=== PATIENT | male | born 1955 | race Caucasian/White ===

== ENCOUNTER → 2020-02-05 19:20 | Outpatient (ROUT) | payer OTHER, SELFPAY ==
[2020-02-05 19:56] LABS: Aspartate Aminotransferase 24 IU/L (17-59); Cholesterol 227 mg/dL (140-199); HDL Cholesterol 54 mg/dL (40-60); LDL Cholesterol Calculated 124 mg/dL (<100); Triglycerides 245 mg/dL (35-150)
[2020-02-05 20:26] LABS: Prostate Specific Antigen 0.642 ng/mL (0.10-4.00)
== END ==
PROVIDERS: Visit Provider Internal Medicine
DX: E78.2 Mixed hyperlipidemia (principal)
CPT/HCPCS: 80061; 84153; 84450

== ENCOUNTER → 2022-07-30 10:31 | Outpatient (CLI) | payer MEDICARE, OTHER, SELFPAY ==
--- NOTE | 2022-07-30 10:33 | DI.NM.S_ITS ---
PROCEDURE: NM BONE SCAN WHOLE BODY RADIOPHARMACEUTICAL: 21.1 mCi Tc-99m MDP IV. INDICATIONS: bone pain arms and legs, psoriatic arthritis TECHNIQUE: Delayed whole-body scintigrams were obtained approximately 3-4 hours after intravenous injection of radiotracer. Anterior and posterior views were acquired from vertex to feet. Additional localized views of the thoracic cage and lower extremities were obtained. COMPARISON: [facility], CT, CT ABDOMEN PELVIS WITHOUT CONTRAST, 06/18/2020, 15:40. FINDINGS: No lesions are identified in skull, sternum, clavicles, scapulae, ribs, bony pelvis, and visualized shafts of the long bones. There are foci of increased uptake in cervical, thoracic and lumbar spine most likely secondary to degenerative disc and facet disease; early metastasis to spine could be obscured by degenerative changes. There are foci of increased periarticular activity involving shoulders, sternoclavicular joints, elbows, wrists, hands, hips, SI joints, knees, ankles and feet, compatible with degenerative/arthritic changes. Mild focal uptake is noted in the proximal left tibia. IMPRESSION: 1. Degenerative/arthritic changes in in spine and multiple peripheral joints. 2. There is a focal uptake in the proximal left tibia. Recommend radiographic correlation. Dictated by: Song Richards M.D. on 07/30/2022 at 15:55 Approved by: Song Richards M.D. on 07/30/2022 at 15:57
== END ==
PROVIDERS: PCP Internal Medicine; Referring Provider Internal Medicine; Visit Provider Internal Medicine
DX: L40.50 Arthropathic psoriasis, unspecified (principal); M79.603 Pain in arm, unspecified; M79.669 Pain in unspecified lower leg
CPT/HCPCS: 78306; A9503

== ENCOUNTER → 2022-10-18 08:31 | Outpatient (CLI) | payer MEDICARE, OTHER, SELFPAY ==
[2022-10-18 09:58] LABS: Cholesterol 176 mg/dL (140-199); HDL Cholesterol 67 mg/dL (40-60); LDL Cholesterol Calculated 78 mg/dL (<100); Triglycerides 153 mg/dL (35-150)
[2022-10-18 10:28] LABS: Prostate Specific Antigen 0.507 ng/mL (0.10-4.00)
[2022-10-18 10:37] LABS: TSH w/ Reflex to FT4 2.62 uIU/mL (0.47-4.68)
== END ==
PROVIDERS: PCP Internal Medicine; Referring Provider Internal Medicine; Visit Provider Internal Medicine
DX: E78.2 Mixed hyperlipidemia (principal); N40.0 Benign prostatic hyperplasia without lower urinary tract symptoms
CPT/HCPCS: 36415; 80061; 84153; 84443

== ENCOUNTER → 2023-09-21 12:06 | Outpatient (CLI) | payer MEDICARE, OTHER, SELFPAY ==
--- NOTE | 2023-09-21 12:10 | DI.US.S_ITS ---
PROCEDURE: US SCROTUM INDICATIONS: RIGHT TESTICULAR PAIN TECHNIQUE: Real-time scanning was performed of the scrotum and testicles, with image documentation. Color and pulse Doppler interrogation was performed of both testicles. COMPARISON: [facility], CT, CT ABDOMEN PELVIS WITHOUT CONTRAST, 06/18/2020, 15:40. FINDINGS: Right: Testicle is normal in size at 4.7 x 2.3 x 3.7 cm, and homogenous in echotexture. Epididymis is normal in overall size and morphology. There is a small to moderate right-sided hydrocele. Overlying scrotal skin is normal in thickness. Left: Testicle is normal in size at 4.3 x 2.1 x 3.5 cm, and homogeneous in echotexture. Epididymis is normal in overall size and morphology. A small to moderate left-sided hydrocele is seen. Overlying scrotal skin is normal in thickness. Doppler: Color and pulse Doppler demonstrate normal and symmetric arterial flow in both testicles. No varicocele is seen on either side. Additional, dedicated ultrasound scanning is performed at the area of area of pain within the right groin. No focal ultrasound abnormalities are seen within this region. IMPRESSION: No abnormalities can be seen at the area of pain within the right groin. No recurrent hernia can be seen. Normal appearing testicles, with normal appearing vascularity. No testicular masses are seen. Small to moderate bilateral hydroceles are seen. Dictated by: Derrick Farooq M.D. on 09/21/2023 at 12:41 Approved by: Derrick Farooq M.D. on 09/21/2023 at 12:43
== END ==
LOC: US 12:08
PROVIDERS: PCP Internal Medicine; Referring Provider Internal Medicine; Visit Provider Internal Medicine
DX: N50.819 Testicular pain, unspecified (principal); N43.3 Hydrocele, unspecified
CPT/HCPCS: 76870; 93975

== ENCOUNTER → 2023-10-20 08:39 | Outpatient (CLI) | payer MEDICARE, OTHER, SELFPAY ==
[2023-10-20 09:29] LABS: Hemoglobin 16.3 g/dL (13.5-17.5); Mean Corpuscular HGB Conc 34.6 % (30-36); Mean Corpuscular Hemoglobin 33.2 PG (26-34); Mean Corpuscular Volume 96.1 fL (80-100); Platelet Count 209 X10^3/uL (150-400); Red Blood Cell Count 4.89 X10^6/uL (4.5-5.9); White Blood Cell Count 9.3 X10^3/uL (4.5-11.0)
[2023-10-20 10:10] LABS: Aspartate Aminotransferase 34 IU/L (17-59); BUN Creatinine Ratio 15.3 (6-22); Blood Urea Nitrogen 15 mg/dL (9-20); Carbon Dioxide 30 mmol/L (22-32); Chloride 106 mmol/L (98-107); Cholesterol 167 mg/dL (140-199); Estimated Glomerular Filt Rate > 60 mL/min (>60); Glucose 104 mg/dL (80-110); HDL Cholesterol 63 mg/dL (40-60); LDL Cholesterol Calculated 85 mg/dL (<100); Potassium 4.7 mmol/L (3.4-5.1); Sodium 140 mmol/L (137-145); Triglycerides 97 mg/dL (35-150)
[2023-10-20 10:42] LABS: HEMOLYSIS < 15 (0-50); Prostate Specific Antigen 0.641 ng/mL (0.10-4.00)
== END ==
PROVIDERS: PCP Internal Medicine; Referring Provider Internal Medicine; Visit Provider Internal Medicine
DX: E78.2 Mixed hyperlipidemia (principal); N40.0 Benign prostatic hyperplasia without lower urinary tract symptoms; L40.50 Arthropathic psoriasis, unspecified
CPT/HCPCS: 36415; 80048; 80061; 84153; 84450; 85027

== ENCOUNTER → 2023-10-27 09:13 | Outpatient (CLI) | payer MEDICARE, OTHER, SELFPAY ==
--- NOTE | 2023-10-27 09:14 | DI.CT.S_ITS ---
PROCEDURE: CT LUNG LOW DOSE SCREENING INDICATIONS: smoker TECHNIQUE: Noncontrast 2.0-2.5 mm thick sections acquired from the pulmonary apices to the posterior costophrenic angles. 7 mm thick axial MIP, and 5 mm coronal and sagittal reformats were then acquired. For radiation dose reduction, the following was used: automated exposure control, adjustment of mA and/or kV according to patient size. COMPARISON: None. FINDINGS: Image quality: Diagnostic. Lower Neck: No enlarged lymph nodes. Thyroid: No thyroid nodules which require sonographic follow up, per consensus guidelines. Axillae: No enlarged lymph nodes. Chest Wall: Unremarkable. Bones: No suspicious osseous lesion. Lungs and Pleura: No pneumothorax or pleural effusions. No consolidation or suspicious nodules. Heart: Heart size is normal. Moderate coronary artery calcifications. No pericardial effusion. Thoracic Vessels: The aorta and pulmonary arteries demonstrate normal size. Mediastinum and Heidy: No enlarged lymph nodes. Esophagus: No wall thickening. No hiatal hernia. Upper Abdomen: Visualized upper abdomen solid organs and bowel loops appear normal. IMPRESSION: No suspicious pulmonary nodules. LUNG-RADS 1; continued annual screening, if eligible. Clinically Significant Non-pulmonary Findings: Moderate coronary artery calcifications. Dictated by: Rene Booker M.D. on 10/27/2023 at 9:54 Approved by: Rene Booker M.D. on 10/27/2023 at 10:00
== END ==
LOC: CT 09:14
PROVIDERS: PCP Internal Medicine; Referring Provider Internal Medicine; Visit Provider Internal Medicine
DX: F17.210 Nicotine dependence, cigarettes, uncomplicated (principal); Z12.2 Encounter for screening for malignant neoplasm of respiratory organs; I25.10 Atherosclerotic heart disease of native coronary artery without angina pectoris
CPT/HCPCS: 71271

== ENCOUNTER → 2024-11-15 10:57 | Outpatient (CLI) | payer MEDICARE, OTHER, SELFPAY ==
[2024-11-15 13:11] LABS: Aspartate Aminotransferase 40 IU/L (17-59); BUN Creatinine Ratio 17.8 (6-22); Blood Urea Nitrogen 19 mg/dL (9-20); Carbon Dioxide 27 mmol/L (22-32); Chloride 105 mmol/L (98-107); Cholesterol 173 mg/dL (140-199); Estimated Glomerular Filt Rate > 60 mL/min (>60); Glucose 100 mg/dL (80-110); HDL Cholesterol 68 mg/dL (40-60); HEMOLYSIS 17 (0-50); LDL Cholesterol Calculated 78 mg/dL (<100); Potassium 4.1 mmol/L (3.4-5.1); Sodium 141 mmol/L (137-145); Triglycerides 133 mg/dL (35-150)
[2024-11-15 13:42] LABS: Prostate Specific Antigen 0.685 ng/mL (0.10-4.00)
== END ==
PROVIDERS: PCP Internal Medicine; Referring Provider Internal Medicine; Visit Provider Internal Medicine
DX: E78.2 Mixed hyperlipidemia (principal); N40.0 Benign prostatic hyperplasia without lower urinary tract symptoms
CPT/HCPCS: 36415; 80048; 80061; 84153; 84450

== ENCOUNTER → 2024-11-19 09:00 | Outpatient (CLI) | payer MEDICARE, OTHER, SELFPAY ==
--- NOTE | 2024-11-19 09:01 | DI.CT.S_ITS ---
PROCEDURE: CT LUNG LOW DOSE SCREENING INDICATIONS: nicotine use TECHNIQUE: Noncontrast 2.0-2.5 mm thick sections acquired from the pulmonary apices to the posterior costophrenic angles. 7 mm thick axial MIP, and 5 mm coronal and sagittal reformats were then acquired. For radiation dose reduction, the following was used: automated exposure control, adjustment of mA and/or kV according to patient size. COMPARISON: [facility], CT, CT LUNG LOW DOSE SCREENING, 10/27/2023, 9:17. FINDINGS: Image quality: Diagnostic. Lower Neck: No enlarged lymph nodes. Thyroid: No thyroid nodules which require sonographic follow up, per consensus guidelines. Axillae: No enlarged lymph nodes. Chest Wall: Unremarkable. Bones: Visualized osseous structures appear intact without acute fracture or focal destructive lesion. No acute compression fractures of the imaged spine. Lungs and Pleura: No pneumothorax or pleural effusions. No new suspicious or enlarging pulmonary nodules. No acute consolidations. No septal thickening or nodularity. Visualized airways appear clear. Heart: Heart size is normal. No pericardial effusion. Thoracic Vessels: The aorta and pulmonary arteries demonstrate normal size. Mediastinum and Heidy: No enlarged lymph nodes. Esophagus: No wall thickening. No hiatal hernia. Upper Abdomen: Visualized upper abdomen solid organs and bowel loops appear normal. IMPRESSION: No suspicious pulmonary nodules. LUNG-RADS 1; continued annual screening, if eligible. Clinically Significant Non-pulmonary Findings: None. Dictated by: Jon Longoria M.D. on 11/19/2024 at 10:09 Approved by: Jon Longoria M.D. on 11/19/2024 at 10:12
== END ==
PROVIDERS: PCP Internal Medicine; Referring Provider Internal Medicine; Visit Provider Internal Medicine
DX: F17.210 Nicotine dependence, cigarettes, uncomplicated (principal); Z12.2 Encounter for screening for malignant neoplasm of respiratory organs
CPT/HCPCS: 71271